=== PATIENT | male | born 1940 | race Caucasian/White ===

== ENCOUNTER → 2023-06-15 14:56 | Outpatient (REF) | payer OTHER, SELFPAY | LOC: DHCBS HW 14:56 | PROVIDERS: ATTENDING PHYSICIAN Internal Medicine Cardiovascular Disease; FAMILY PHYSICIAN Family Medicine | DX: I42.8 Other cardiomyopathies (principal); I44.7 Left bundle-branch block, unspecified; I34.0 Nonrheumatic mitral (valve) insufficiency; Q22.1 Congenital pulmonary valve stenosis | CPT/HCPCS: 93306 ==

== ENCOUNTER → 2023-07-26 12:36 | Outpatient (REF) | payer OTHER, SELFPAY | LOC: RAD 12:36 | PROVIDERS: ATTENDING PHYSICIAN Emergency Medicine | DX: M54.50 Low back pain, unspecified (principal); M79.604 Pain in right leg | CPT/HCPCS: 72110; 73502; 73552 ==

== ENCOUNTER 2025-02-15 08:37 | Emergency (ER) | payer MEDICARE, BC, SELFPAY ==
[2025-02-15 08:46] VITALS: BP 132/82
--- NOTE | 2025-02-15 09:46 | ED.GENMED ---
History of Present Illness
General
Chief Complaint: Breathing Problem
Source: patient and spouse
Exam Limitations: dementia
Time Seen by Provider: 02/15/25 09:35
History of Present Illness
History of Present Illness:
84yoM with a history of CHF, defibrillator, hypertension, hyperlipidemia presenting with his for evaluation of shortness of breath. Patient woke up several times during the night to have a bowel movement but was unable to. noticed that
he was awake this morning around 7am which is unusual. Patient was complaining of shortness of breath. Due to his his defibrillator, became concerned and decided to bring him to the ED. She has also noticed that he has been coughing
recently. Patient has no complaints on arrival and states he feels normal. He is currently denying any shortness of breath, chest pain, abdominal pain, fevers, leg swelling. He has a documented history of CHF but states he does not take any
diuretics. His foundation digger is Dr. Devi. Last echocardiogram in May 2023 showed an EF of 44%.
Phy Exam
General Physical Exam
General Presentation: well appearing and no apparent distress
General Skin: warm and dry
General Habitus: normal
General Mental: alert
ENT Exam
ENT Exam: normocephalic
Cardiovascular Exam
Cardiovascular Exam: regular rate/rhythm and no edema
Pulmonary Exam
Pulmonary Exam: lungs clear, no respiratory distress, no rales, no crackles, no rhonchi and no wheezing
Neurological Exam
Neurological Exam: alert
Skin Exam
Skin Exam: normal color and warm/dry
Psychiatric Exam
Psychiatric Exam: normal mood/affect
Scores
Heart Failure Risk
Heart Failure Risk Score: Not Applicable
Course
Orders/Labs/Results
Orders:
Orders
02/15/25 08:49
Electrocardiogram (*1) Urgent
Reason for Study: Shortness of Breath
EKG- Treatment ONCE
02/15/25 09:46
Cardiac Monitoring- Treatment ONCE
Interrogate Pacemaker- Treatment ONCE
CR Chest - 2 Views Urgent
Comment:
Reason For Exam: SOB
02/15/25 10:12
Complete Blood Count/With Diff Urgent
Comprehensive Metabolic Panel Urgent
Troponin I Urgent
Abnormal Lab Results
02/15/25
10:12
RBC 4.42 L 10^6/uL
(4.70-6.10)
Absolute Lymphs (auto) 1.0 L 10^3/uL
(1.2-3.4)
Absolute Monos (auto) 0.7 H 10^3/uL
(0.1-0.6)
Neutrophils % 76.6 H %
(42.2-75.2)
Lymphocytes % 12.5 L %
(20.5-51.1)
Sodium 134 L mmol/L
(135-145)
02/15/25 10:12
02/15/25 10:12
Vital Signs
Initial and Last Documented VS:
Initial Vital Signs
Temp Pulse Resp BP Pulse Ox
98.5 F 87 18 132/82 95
02/15/25 08:46 02/15/25 08:46 02/15/25 08:46 02/15/25 08:46 02/15/25 08:46
Last Documented Vital Signs
Temp Pulse Resp BP Pulse Ox
98.5 F 76 16 131/76 96
02/15/25 08:46 02/15/25 10:55 02/15/25 10:55 02/15/25 10:55 02/15/25 10:55
MDM/Problems Addressed
Differential Diagnosis Includes:
84yoM here with SOB. Hx of dementia. Reported dyspnea earlier this morning to . Now denying this and states he feels fine. VSS. Oxygen saturation 95% in triage and 96-100% on initial exam. Lungs CTA and respirations non-labored. No peripheral
edema noted. Differential diagnosis includes but is not limited to: ACS, CHF exacerbation, pneumonia
Initial ED plan: Check cardiac labs, EKG, and CXR. Will interrogate pacemaker.
*Pulse Oximetry
SaO2: 95
Oxygen Mode of Delivery: Room air
Patient hypoxic: no
*EKG
Interpreted by ED Provider?: Yes
EKG Intrepretation Date: 02/15/25
Heart Rate: 79
Rate: normal
Rhythm: sinus
[place]: left axis deviation
QRS Pattern: left bundle branch block
Ischemia: no ischemia
*Critical Care Note
Total Time (30-74mins, 75-104mins- exclusive of procedures): Not Applicable
Update Note
Update Note:
EKG shows LBBB which is stable from prior EKG. Labs unremarkable including normal troponin. Pacemaker interrogated and no recent events. Chest x-ray without consolidation or pulmonary edema. There is hyperaeration noted suggesting component of
COPD. No prior history of COPD. He has a remote history of smoking 40 years ago. No wheezing noted on exam. Patient continues to be asymptomatic on reassessment and continues to deny shortness of breath. Vitals remained stable. No indication
for hospitalization. He has an appointment scheduled with his PCP next week. ED return precautions reviewed. in agreement with plan and he was discharged stable condition.
ED Attending Note
-
Portions of this chart may have been created with voice recognition software.� Occasional wrong word or��sound alike� substitutions may have occurred due to the inherent limitations of voice recognition software.
Discharge Plan
Departure
Patient Disposition: Home (Routine Discharge)
Date of Disposition: 02/15/25
Time of Disposition: 11:33
Patient with high blood pressure during this ER visit?: No
Discharge Problem:
Shortness of breath
Instructions: Shortness of Breath (Dyspnea) (DC)
Prescriptions:
No Action
multivitamin [One Daily Multivitamin] 1 EACH tablet
1 ea PO DAILY
lisinopril 2.5 MG tablet
2.5 mg PO DAILY
ascorbic acid (vitamin C) 500 MG capsule
500 mg PO DAILY
vit C,X-Ov-uigms-lutein-zeaxan [PreserVision AREDS-2] 1 EACH capsule
1 ea PO DAILY
coenzyme [id number]-[id number] E 1 CAP capsule
1 cap PO DAILY
mupirocin 1 APPLIC ointment
1 applic topical BID Qty: 1 0RF
Patient Comments:
Started on 04/11AM last dose 04/13 in the evening.
oxycodone 5 MG tablet
5 mg PO Q6HPRN PRN (Reason: moderate-severe pain) Qty: 30 0RF
Rx Instructions:
1 tab moderate pain or 2 if pain severe
Dx total joint replacement
ongoing therapy
famotidine 20 MG tablet
20 mg PO HS Qty: 30 0RF
sennosides [senna] 8.6 MG tablet
8.6 mg PO BID Qty: 60 0RF
Rx Instructions:
one twice a day as needed for constipation
acetaminophen 500 MG tablet
1,000 mg PO QID Qty: 90 0RF
Rx Instructions:
1000mg four times a day
DO NOT EXCEED 4000MG IN 24 HOURS
aspirin 325 MG tablet,delayed release (DR/EC)
325 mg PO DAILY Qty: 30 0RF
Rx Instructions:
ONE DAILY FOR 30 DAYS TO PREVENT BLOOD CLOTS
docusate sodium [Colace] 100 MG capsule
100 mg PO BID Qty: 60 0RF
Rx Instructions:
one twice a day as needed for constipation
Referrals:
UNKNOWN - PT NOT,INTERVIEWE [Family Provider]
Activity Restrictions/Additional Instructions:
Please follow-up with your family doctor next week. Return to the ER with any new or worsening symptoms.
Interventions
Interventions:
*Risk Screen - Suicide Last Done: 02/15/25 08:46
*General Assessment Last Done: 02/15/25 08:46
*Neglect/Abuse Screening Last Done: 02/15/25 08:46
*Nursing Disposition Last Done: 02/15/25 12:10
ED- Cardiac Assessment Last Done: 02/15/25 10:10
ED- Pulmonary Assessment Last Done: 02/15/25 10:10
Discharge Date and Time
Discharge Date/Time: 02/15/25 12:11
Print Language: DOMINICAN
[2025-02-15 10:20] LABS: Hematocrit 40.7 % (39.0-52.0); Hemoglobin 13.6 g/dL (13.0-18.0); Mean Corp Hgb Conc. 33.4 g/dL (33.0-37.0); Mean Corpuscular Volume 92.1 fL (80.0-94.0); Nucleated Red Blood Cells % 0 % (-); Platelet Count 178 10^3/uL (130-400); Red Cell Dist. Width 12.9 % (11.5-14.5)
[2025-02-15 10:38] LABS: ALT (SGPT) 17 U/L (0-50); AST (SGOT) 23 U/L (17-59); Albumin 4.0 g/dl (3.5-5.0); Alkaline Phosphatase 53 U/L (38-126); Blood Urea Nitrogen 14 mg/dl (9-20); Calcium 8.9 mg/dl (8.4-10.2); Carbon Dioxide 27 mmol/L (22-30); Chloride 105 mmol/L (98-107); Glucose 98 mg/dl (70-99); Potassium 4.0 mmol/L (3.5-5.1); Sodium 134 mmol/L (135-145); Total Protein 6.7 g/dl (6.3-8.2); eGFR > 60.00
[2025-02-15 10:47] LABS: Troponin I 0.017 ng/ml
[2025-02-15 10:55] VITALS: BP 131/76
== END 2025-02-15 12:11 | disposition home or self-care (01) ==
LOC: EMR 08:37
PROVIDERS: Physician Assistant; EMERGENCY PHYSICIAN Emergency Medicine
DX: R06.02 Shortness of breath (principal); I44.7 Left bundle-branch block, unspecified; F03.90 Unspecified dementia, unspecified severity, without behavioral disturbance, psychotic disturbance, mood disturbance, and anxiety; I11.0 Hypertensive heart disease with heart failure; I50.9 Heart failure, unspecified; E78.5 Hyperlipidemia, unspecified; Z95.0 Presence of cardiac pacemaker; Z87.891 Personal history of nicotine dependence
CPT/HCPCS: 99284; 93288; 71046; 80053; 84484; 85025; 93005